=== PATIENT | male | born 1950 | race Caucasian/White ===

== ENCOUNTER 2017-01-28 03:42 | Emergency (ER) | payer OTHER ==
[~2017-01-28] VITALS: Ht 175.3 cm; Wt 95.9 kg
[~2017-01-28 03:42] MED LIST: FLEXERIL10 MG PO; GENTAMICIN SULFA5 ML LEFT EYE; LORTAB 5-325 M1 EACH PO; MOTRIN600 MG PO
[2017-01-28 04:05] LABS: HEMATOCRIT 44.5 % (38.0-50.0); MCH 31.7 PG (29.0-34.0); MCHC 35.5 G/DL (30.0-36.0); MCV 89.2 FL (86-99); MEAN PLAT.VOLUME 9.7 uM^3 (9.0-12.4); PLATELET COUNT 233 K/uL (156-360); RBC DIS.WIDTH-CV 11.9 % (11.8-14.6); RBC DIS.WIDTH-SD 38.7 % (39-53); RED BLOOD COUNT 4.99 M/uL (4.00-5.50); WHITE BLOOD COUNT 8.8 K/uL (4.1-10.2)
[2017-01-28 04:17] LABS: CHLORIDE 101 mEq/L (99-109); POTASSIUM 3.5 mEq/L (3.7-5.4); SODIUM 137 mEq/L (136-147)
[2017-01-28 04:19] LABS: GLUCOSE 143 mg/dL (70-99)
[2017-01-28 04:20] LABS: ANION GAP 12 MEQ/L (2-14)
[2017-01-28 04:21] LABS: TOTAL BILIRUBIN 1.5 mg/dL (0.0-1.0)
[2017-01-28 04:22] LABS: ALKALINE PHOSPHATASE 107 IU/L (3-129)
[2017-01-28 04:23] LABS: GFR ESTIMATE (CALCULATED) > 59 mL/min/
[2017-01-28 04:24] LABS: UREA NITROGEN (BUN) 25 mg/dL (9-23)
[2017-01-28 04:38] LABS: LIPASE 43 U/L (1.0-51.0)
[2017-01-28 06:11] LABS: ADD MIUA? NO; BILIRUBIN NEGATIVE; BLOOD NEGATIVE; COLOR YELLOW ((YELLOW)); GLUCOSE (STRIP) NEGATIVE; KETONES 20; LEUKOCYTES NEGATIVE; NITRITE NEGATIVE; PROTEIN (STRIP) NEGATIVE; SPECIFIC GRAVITY 1.018 (1.000-1.030); UCUL ADDED? NO
[2017-01-28] MEDS ORDERED: BENTYL20 MG PO (06:18)
[2017-01-28 08:38] VITALS: BP 137/79
== END 2017-01-28 08:39 | disposition home or self-care (01) ==
LOC: EME 03:42
DX: R10.9 Unspecified abdominal pain (principal); R11.2 Nausea with vomiting, unspecified; E86.0 Dehydration; E87.6 Hypokalemia; E83.51 Hypocalcemia; I10 Essential (primary) hypertension; Z87.891 Personal history of nicotine dependence; Z88.0 Allergy status to penicillin
CPT/HCPCS: 74177; 80053; 81003; 83605; 83690; 85027; 99281; 99284; J2270; J2405; J2765; J7030